=== PATIENT | female | born 1960 | race Caucasian/White ===

== ENCOUNTER 2019-02-06 11:06 | Day surgery (SDC) | payer OTHER ==
[2019-02-06] MEDS ORDERED: LR 1,000 ML IV ONE (11:22)
--- NOTE | 2019-02-06 13:12 | PDHPUP ---
History & Physical Update H&P update statement: This history and physical update is based on an assessment of the patient which was completed after admission or registration (within 24 hours), but prior to the surgery/procedure. H&P update: H&P reviewed & patient examined, no change in patient's condition since H&P completed H&P changes: none
[2019-02-06] MEDS ORDERED: ALBUTEROL 3 ML DEYVIAL IH PRN (13:33)
[2019-02-06] MEDS ORDERED: PROMETHAZINE HCL 25 MG/ML INJ IVP PRN (13:33)
[2019-02-06] MEDS ORDERED: ACETAMINOPHEN 500 MG TAB PO PRN (13:33)
[2019-02-06] MEDS ORDERED: NALOXONE HCL 0.4 MG/ML INJ IVP PRN (13:33)
[2019-02-06] MEDS ORDERED: METOCLOPRAMIDE 10 MG/2 ML VIAL IVP PRN (13:33)
[2019-02-06] MEDS ORDERED: DEXAMETHASONE 4 MG/ML VIAL IVP PRN (13:33)
[2019-02-06] MEDS ORDERED: ONDANSETRON 4 MG/2 ML VIAL IVP PRN (13:33)
--- NOTE | 2019-02-06 13:35 | PDANEPAE ---
ANE History of Present Illness EDG & Colonoscopy ANE Past Medical History - Cardiovascular History Hx Hypertension: No Hx Arrhythmias: No Hx Chest Pain: No Hx Coronary Artery / Peripheral Vascular Disease: No Hx CHF / Valvular Disease: No Hx Palpitations: No - Pulmonary History Hx COPD: No Hx Asthma/Reactive Airway Disease: Yes Hx Recent Upper Respiratory Infection: No Hx Oxygen in Use at Home: No Hx Sleep Apnea: Yes Sleep Apnea Screening Result - Last Documented: Positive Pulmonary History Comment: uses inhaler. enviromental and exercise induced asthma - Neurologic History Hx Cerebrovascular Accident: No Hx Seizures: No Hx Dementia: No - Endocrine History Hx Diabetes: No - Renal History Hx Renal Disorders: No - Liver History Hx Hepatic Disorders: No - Neurological & Psychiatric Hx Hx Neurological and Psychiatric Disorders: Yes Neurological / Psychiatric History Comment: numbness/tingling down both arms. anxiety - Cancer History Hx Cancer: No - Congenital Disorder History Hx Congenital Disorders: No - GI History Hx Gastrointestinal Disorders: Yes Gastrointestinal History Comment: heart burn,dysphagia. constipation - Other Health History Other Health History: dysphagia - Chronic Pain History Chronic Pain: Yes (rheumatoid arthitis) - Surgical History Prior Surgeries: 8 cervical spine surgeries. 2013 LTKA. 2014 4TH C4-7 fusion with hardware. 2016 neurostim implanted. 2017 neuro stim removed. 2018 cholecystectomy/liver biopsyandovary removed. 2018 new neurostim placed ANE Review of Systems Review of Systems: - Exercise capacity METS (RN): 4 METS ANE Patient History - Allergies Allergies/Adverse Reactions: cephalexin [From Keflex] Allergy (Verified 01/29/19 16:04) Anaphylaxis Milk Containing Products Allergy (Verified 01/29/19 16:04) Other-Enter Comments NSAIDS (Non-Steroidal Anti-Inflamma Allergy (Verified 01/29/19 16:04) Anaphylaxis wheat Allergy (Verified 01/29/19 16:04) Anaphylaxis - Home Medications Home Medications: Botox 01/29/19 [Last Taken 3 Months Ago ~11/09/18] Flexeril 10 MG (*) 01/29/19 [Last Taken 02/05/19] Gabapentin 01/29/19 [Last Taken 02/05/19] Orencia 01/29/19 [Last Taken 3 Weeks Ago ~01/16/19] Singulair 01/29/19 [Last Taken 01/29/19] - NPO status NPO Since - Liquids (Date): 02/05/19 NPO Since - Liquids (Time): 22:30 NPO Since - Solids (Date): 02/05/19 NPO Since - Solids (Time): 09:00 - Smoking Hx Smoking Status: Never smoked - Family Anes Hx Family Hx Anesthesia Complications: none ANE Labs/Vital Signs - Vital Signs Blood Pressure: 121/91 Heart Rate: 93 Respiratory Rate: 16 O2 Sat (%): 95 Height: 172.72 cm Weight: 66.678 kg ANE Physical Exam - Airway Neck exam: decreased ROM Mallampati Score: Class 3 Mouth exam: small mouth opening - Pulmonary Pulmonary: clear to auscultation - Cardiovascular Cardiovascular: regular rate and rhythym - ASA Status ASA Status: III ANE Anesthesia Plan Anesthesia Plan: GA with mask
[2019-02-06] MEDS ORDERED: PROPOFOL 200 MG/20 ML VIAL ONE ×2 (13:39→14:00)
[2019-02-06] MEDS ORDERED: ONDANSETRON 4 MG/2 ML VIAL ONE (13:59)
[2019-02-06] MEDS ORDERED: LIDOCAINE 2% 2 ML INJ ONE (13:59)
--- NOTE | 2019-02-06 14:40 | GIREPORT ---
[facility] - Endoscopy Department Patient Name: Rakel Olea Procedure Date: 02/06/2019 1:28 PM Patient Type: Outpatient Attending / ER Physician: Max Parada MD Procedure: Colonoscopy Indications: Screening for colorectal malignant neoplasm Providers: Max Parada MD Requesting Provider: Trixie Gold MD Medicines: Propofol per Anesthesia Complications: No immediate complications. Estimated blood loss: Minimal. Description of Procedure: After obtaining informed consent, the scope was passed under direct vis ion. Throughout the procedure, the patient's blood pressure, pulse, and oxyg en saturations were monitored continuously. The Colonoscope with irrigatio n channel was introduced through the anus and advanced to the terminal il eum, with identification of the appendiceal orifice and IC valve. The colono scopy was performed without difficulty. The patient tolerated the procedure w ell. The quality of the bowel preparation was good. Findings: The digital rectal exam was normal. The terminal ileum appeared normal. A 6 mm polyp was found in the descending colon. The polyp was sessile. The polyp was removed with a cold snare. Resection and retrieval were compl ete. Estimated blood loss was minimal. A 2 mm polyp was found in the sigmoid colon. The polyp was sessile. The polyp was removed with a cold biopsy forceps. Resection and retrieval w ere complete. Estimated blood loss was minimal. The exam was otherwise without abnormality. Estimated Blood Loss: Estimated blood loss was minimal. Post Op Diagnosis: - The examined portion of the ileum was normal. - One 6 mm polyp in the descending colon, removed with a cold snare. Resected and retrieved. - One 2 mm polyp in the sigmoid colon, removed with a cold biopsy force ps. Resected and retrieved. - The examination was otherwise normal. Recommendation: - Await pathology results. - My office will call with the pathology result with 5-7 days. If you h ave not heard from my office by 12-14, do not assume the pathology is ericka l, please call [phone] to get the pathology results. - Repeat colonoscopy in 5 years for surveillance. - Resume previous diet. - Patient has a contact number available for emergencies. The signs and symptoms of potential delayed complications were discussed with the pat ient. Return to normal activities tomorrow. Written discharge instructions we re provided to the patient. - Continue present medications. - See EGD for other recommendations - Return to primary care physician as previously scheduled. - Return to GI clinic in 8 weeks. - Thank you for allowing me to help in your patient's care. Do not hesi burgess to call with any questions. Attending Participation: I personally performed the entire procedure. Tal Robb M.D Max Parada MD 02/06/2019 2:39:29 PM This report has been signed electronicallyMatthew MD Tal Number of Addenda: 0 Note Initiated On: 02/06/2019 1:28 PM Total Procedure Duration Time 0 hours 22 minutes 10 seconds [email or web address]
--- NOTE | 2019-02-06 14:45 | GIREPORT ---
[facility] - Endoscopy Department Patient Name: Rakel Olea Procedure Date: 02/06/2019 1:27 PM Patient Type: Outpatient Attending MD/ ER Physician: Max Parada MD Procedure: Upper GI endoscopy Indications: Dysphagia Providers: Max Parada MD Referring MD: Trixie Gold MD Medicines: Propofol per Anesthesia Complications: No immediate complications. Estimated blood loss: Minimal. Description of Procedure: After obtaining informed consent, the endoscope was passed under direct vision. Throughout the procedure, the patient's blood pressure, pulse, and oxygen saturations were monitored continuously. The Endoscope was intro duced through the mouth, and advanced to the third part of duodenum. The uppe r GI endoscopy was accomplished without difficulty. The patient tolerated th e procedure well. Findings: The upper third of the esophagus was normal. Biopsies were obtained fro m the proximal and distal esophagus with cold forceps for histology of suspec alexander eosinophilic esophagitis. Estimated blood loss was minimal. Mucosal changes including ringed esophagus and longitudinal furrows wer e found in the lower third of the esophagus. Biopsies were obtained from the proximal and distal esophagus with cold forceps for histology of suspec alexander eosinophilic esophagitis. Estimated blood loss was minimal. One benign-appearing, intrinsic moderate stenosis was found at the gastroesophageal junction. This stenosis measured 1.4 cm (inner diamete r) x less than one cm (in length). The stenosis was traversed. A TTS dilator was passed through the scope. Dilation with a 12-13.5-15 mm x 5.5 cm CRE ba lloon and a 15-16.5-18 mm x 5.5 cm CRE balloon dilator was performed to 18 mm . The dilation site was examined and showed moderate mucosal disruption. Virgie mated blood loss was minimal. A hiatal hernia was present. Scattered moderate inflammation with hemorrhage characterized by erosio ns, erythema, friability and granularity was found at the incisura and in t he gastric antrum. Biopsies were taken with a cold forceps for histology. Estimated blood loss was minimal. The examined duodenum was normal. Biopsies for histology were taken wit h a cold forceps for evaluation of celiac disease. Estimated blood loss was minimal. The exam was otherwise without abnormality. Estimated Blood Loss: Estimated blood loss was minimal. Post Op Diagnosis: - Normal upper third of esophagus. Biopsied. - Esophageal mucosal changes suspicious for eosinophilic esophagitis. Biopsied. - Benign-appearing esophageal stenosis. Dilated. - Hiatal hernia. - Gastritis with hemorrhage. Biopsied. - Normal examined duodenum. Biopsied. - The examination was otherwise normal. Recommendation: - Await pathology results. - My office will call with the pathology result with 5-7 days. If you h ave not heard from my office by 09-08, do not assume the pathology is ericka l, please call [phone] to get the pathology results. - Follow an antireflux regimen. - Use Protonix (pantoprazole) 40 mg PO daily. Take 30-60 minutes before breakfast - Repeat upper endoscopy PRN to assess disease activity and for retreat ment. - Perform a colonoscopy today. - Return to GI clinic in 8 weeks. - Return to primary care physician as previously scheduled. - Thank you for allowing me to help in your patient's care. Do not hesi burgess to call with any questions. Attending Participation: I personally performed the entire procedure. Tal Robb M.D Max Parada MD 02/06/2019 2:44:37 PM This report has been signed electronicallyMatthew MD Tal Number of Addenda: 0 Note Initiated On: 02/06/2019 1:27 PM [email or web address]
[2019-02-06 16:20] VITALS: BP 125/87
== END 2019-02-06 16:25 | disposition home or self-care (01) ==
LOC: FSGY 11:06
PROVIDERS: ATTEND Internal Medicine Gastroenterology
DX: K21.0 Gastro-esophageal reflux disease with esophagitis (principal); K22.2 Esophageal obstruction; D12.4 Benign neoplasm of descending colon; D12.5 Benign neoplasm of sigmoid colon; R13.10 Dysphagia, unspecified; M54.2 Cervicalgia; M06.9 Rheumatoid arthritis, unspecified; Z98.1 Arthrodesis status
CPT/HCPCS: 43239; 43249; 45380; C1726; J2405; J2704